=== PATIENT | male | born 2000 | race Caucasian/White ===

== ENCOUNTER 2022-10-27 06:48 | Emergency (ER) | payer MEDICAID ==
[~2022-10-27] VITALS: Ht 172.7 cm; Wt 85.0 kg
[2022-10-27 07:00] VITALS: BP 142/85
== END 2022-10-27 09:39 | disposition home or self-care (01) ==
LOC: ER 06:48
DX: T54.2X1A Toxic effect of corrosive acids and acid-like substances, accidental (unintentional), initial encounter (principal); T43.651A Poisoning by methamphetamines accidental (unintentional), initial encounter; R06.02 Shortness of breath; R00.0 Tachycardia, unspecified; F15.188 Other stimulant abuse with other stimulant-induced disorder; F19.188 Other psychoactive substance abuse with other psychoactive substance-induced disorder; X58.XXXA Exposure to other specified factors, initial encounter; Y93.89 Activity, other specified; Y92.89 Other specified places as the place of occurrence of the external cause
CPT/HCPCS: 93005; 99283